=== PATIENT | male | born 2005 | race African-American/Black ===

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

== ENCOUNTER 2024-10-09 10:02 | Emergency (ER) | payer MEDICAID, OTHER ==
[~2024-10-09] VITALS: Ht 175.3 cm; Wt 71.0 kg
[2024-10-09 10:08] VITALS: TEMP 36.9
[2024-10-09 10:49] LABS: BASOPHILS % 0.7 % (0.0-2.0); EOSINOPHILS % 0.6 % (0.0-5.0); HEMATOCRIT. 47.0 % (42.0-52.0); HEMOGLOBIN. 15.9 g/dL (14.0-18.0); LYMPHOCYTES % 36.3 % (20.0-50.0); MEAN PLATELET VOLUME 9.7 fl (7.4-10.4); MONOCYTES % 7.9 % (2.0-8.0); NEUTROPHILS % 54.5 % (40.0-76.0); PLATELET 237 x1000/uL (130-400); RED BLOOD CELL COUNT 5.40 mill/uL (4.7-6.1); RED CELL DISTRIBUTION WIDTH 13.1 % (11.6-14.6)
[2024-10-09 10:52] VITALS: PULSE 65; RESP 18; O2SAT 98
[2024-10-09] MEDS: ALBUTEROL (0.083%) 2.5MG/3ML NEB HHN STA (10:52)
[2024-10-09] MEDS: IPRATROPIUM BROMIDE (0.02%) 0.5MG/2.5ML NEB HHN STA (10:52)
[2024-10-09] MEDS: PREDNISONE 20MG TABLET PO STA (11:03)
[2024-10-09 11:10] LABS: TROPONIN I HIGH SENSITIVITY < 4 ng/L (3.0-53)
[2024-10-09 11:11] LABS: CREATININE 1.2 mg/dL (0.6-1.3); UREA NITROGEN BLOOD 15 mg/dL (9-23)
[2024-10-09] MEDS ORDERED: ALBU18HF2 IH (12:53)
[2024-10-09 13:10] VITALS: BP 129/73; PULSE 62; RESP 12; O2SAT 100
== END 2024-10-09 13:12 | disposition home or self-care (01) ==
LOC: ER 10:17
DX: R07.89 Other chest pain (principal); R06.02 Shortness of breath; I21.9 Acute myocardial infarction, unspecified; Z88.0 Allergy status to penicillin; Z79.899 Other long term (current) drug therapy
CPT/HCPCS: 80048; 85025; 84484; 36415; 71045; 94640; 99284; J7512; Z7610 ×3; 94070; 94664; 98960

== ENCOUNTER 2024-11-24 21:56 | Emergency (ER) | payer SELFPAY ==
[~2024-11-24] VITALS: Ht 167.6 cm; Wt 68.0 kg
[~2024-11-24 21:56] MED LIST: ALBU18HF2 IH
[2024-11-24 22:02] VITALS: O2SAT 98
[2024-11-24 22:07] VITALS: BP 136/41; PULSE 68; RESP 16; TEMP 37; O2SAT 100
[2024-11-24] MEDS: FLUORESCEIN SODIUM 1MG/STRIP LEFTEYE ONE (23:15)
[2024-11-24] MEDS: TETRACAINE 0.5% OPHTH DROPS 4ML LEFTEYE ONE (23:15)
[2024-11-25] MEDS ORDERED: OCUFLX LEFTEYE (00:47)
== END 2024-11-25 00:55 | disposition home or self-care (01) ==
LOC: ER 22:03
DX: S05.00XA Injury of conjunctiva and corneal abrasion without foreign body, unspecified eye, initial encounter (principal); Z88.0 Allergy status to penicillin; X58.XXXA Exposure to other specified factors, initial encounter; Y93.89 Activity, other specified; Y92.89 Other specified places as the place of occurrence of the external cause; Y99.8 Other external cause status
CPT/HCPCS: 99283